=== PATIENT | female | born 1975 | race Hispanic/Latino ===

== ENCOUNTER 2022-06-08 22:49 | Emergency (ER) | payer OTHER ==
[~2022-06-08] VITALS: Ht 162.6 cm; Wt 67.8 kg
[2022-06-08] MEDS ORDERED: JARDIANCE10 MG PO (23:06)
[2022-06-08] MEDS ORDERED: HYZAAR 100-251 EACH PO (23:07)
[2022-06-08] MEDS ORDERED: LEVOTHYROXINE25 MC1 PO (23:07)
[2022-06-08] MEDS ORDERED: GLIPIZIDE ER10 MG PO (23:07)
[2022-06-08] MEDS ORDERED: OXYCODONE HCL5 MG PO (23:08)
[2022-06-08] MEDS ORDERED: PROCHLORPERAZIN10 MG PO (23:08)
[2022-06-08] MEDS ORDERED: OMEPRAZOLE40 MG PO (23:08)
[2022-06-09] MEDS ORDERED: PAXLOVID 300-11 EACH PO (00:28)
== END 2022-06-09 00:57 | disposition home or self-care (01) ==
LOC: ED 22:49
DX: U07.1 COVID-19 (principal); E11.9 Type 2 diabetes mellitus without complications; Z88.0 Allergy status to penicillin; Z79.899 Other long term (current) drug therapy
CPT/HCPCS: 36415; 71250; 80053; 81003; 85025; 87502; 96374; 99284-25; U0003